=== PATIENT | female | born 1950 | race Two or more races ===

== ENCOUNTER → 2017-12-06 | Outpatient (CLI) | payer MEDICARE ==
[~2017-12-06] VITALS: Ht 165.1 cm; Wt 101.0 kg
[~2017-12-06] MED LIST: ASPI-556 PO; CALC-877 PO; DORZ10DR18 OU; GABA-529 PO; GLIP5 PO; LEVO25TA9 PO; LORA10TA7 PO; MECL-111 PO; OMEP20 PO; POTA99TA15 PO; PRAV40TA4 PO; SITA100 PO; TIMO5DRO43 OU; VITAMIN D PO
[2017-12-06 12:10] VITALS: BP 130/65
== END | disposition home or self-care (01) ==
LOC: SRCNTR 11:54
PROVIDERS: ATTEND Internal Medicine Cardiovascular Disease
DX: I11.9 Hypertensive heart disease without heart failure (principal); E03.9 Hypothyroidism, unspecified; E78.5 Hyperlipidemia, unspecified; H40.9 Unspecified glaucoma; M81.0 Age-related osteoporosis without current pathological fracture; E11.9 Type 2 diabetes mellitus without complications; Z92.3 Personal history of irradiation
CPT/HCPCS: G0463

== ENCOUNTER 2023-04-03 18:02 | Emergency (ER) | payer MEDICARE ==
[~2023-04-03] VITALS: Ht 162.6 cm; Wt 100.0 kg
[~2023-04-03 18:02] MED LIST changes: +GABA-1216 PO; -GABA-529 PO; -GLIP5 PO; +GLIP5TAB16 PO; -MECL-111 PO; +MECL-302 PO
[2023-04-03] MEDS ORDERED: 0.9% SODIUM CHLORIDE 10 ML SYRINGE IVP PRN (19:30)
[2023-04-03] MEDS: SODIUM CHLORIDE 0.9% 3,000 ML IV ONE (20:34)
[2023-04-03 20:54] LABS: ANION GAP 12 mmol/L (8-16); BASOPHILS % (AUTO) 0.2 % (0.0-2.0); CALCIUM, TOTAL 9.1 mg/dL (8.8-10.5); CARBON DIOXIDE 23 mmol/L (22-29); CHLORIDE 105 mmol/L (98-107); CREATININE 2.48 mg/dL (0.60-1.30); EOSINOPHILS % (AUTO) 1.3 % (1.0-6.0); GLOMERULAR FILTR. RATE CALC 19 mL/min (>60); GLUCOSE,RANDOM 264 mg/dL (70-110); HEMATOCRIT 31.2 % (36-46); LYMPHOCYTES # (AUTO) 1.7 K/uL (1.0-4.8); LYMPHOCYTES % (AUTO) 19.2 % (22.0-44.0); MEAN CORPUSCULAR HEMOGLOBIN 29.1 pg (26.0-34.0); MEAN CORPUSCULAR HGB CONC 32.2 G/dL (31.0-37.0); MEAN CORPUSCULAR VOLUME 90 fL (80-100); MONOCYTES # (AUTO) 0.9 K/uL (0.1-1.0); MONOCYTES % (AUTO) 10.2 % (2.0-9.0); NEUTROPHILS # (AUTO) 6.2 K/uL (1.8-7.7); NEUTROPHILS % (AUTO) 69.1 % (40.0-70.0); PLATELET COUNT (AUTO) 212 K/uL (150-450); POTASSIUM 4.1 mmol/L (3.5-5.1); RED BLOOD CELL COUNT(AUTO) 3.45 MIL/uL (4.00-5.20); RED CELL DISTRIBUTION WIDTH 16.7 % (11.5-14.5); SODIUM SERUM 140 mmol/L (136-145); UREA NITROGEN, BLOOD 69 mg/dL (7-18)
[2023-04-03 20:57] LABS: D-DIMER 0.59 mg/L FEU (0.00-0.50); PROTHROMBIN TIME 10.5 SEC (9.4-11.6)
[2023-04-03 20:59] LABS: B-TYPE NATRIURETIC PEPTIDE 82 pg/mL (0-100)
[2023-04-03 21:00] LABS: ALANINE AMINOTRANSFERASE 17 U/L (12-78); ALBUMIN 3.2 g/dL (3.4-5.0); ALKALINE PHOSPHATASE 80 U/L (46-116); ASPARTATE AMINOTRANSFERASE 13 U/L (15-37); BILIRUBIN,TOTAL 0.3 mg/dL (0.1-1.0); TOTAL PROTEIN, SERUM 7.2 g/dL (6.4-8.2)
[2023-04-03 21:01] LABS: TROPONIN I-HIGH SENSITIVITY 31 ng/L (<51)
[2023-04-03 21:02] LABS: LACTIC ACID 0.8 mmol/L (0.4-2.0)
[2023-04-03] MEDS: METOCLOPRAMIDE HCL 5 MG/ML 2 ML VIAL IVP ONE (21:50)
[2023-04-03] MEDS: ACETAMINOPHEN 500 MG TABLET PO ONE (21:50)
[2023-04-03 23:21] LABS: COVID AG,FIA SOURCE NASAL SWAB
[2023-04-03 23:51] LABS: APPEARANCE,URINE CLEAR (CLEAR); BILIRUBIN,URINE NEGATIVE (NEGATIVE); COLOR,URINE COLORLESS (YELLOW); GLUCOSE, URINE (UA) 70-100 mg/dL (NEGATIVE); KETONES,URINE NEGATIVE (NEGATIVE); LEUKOCYTE ESTERASE ,URINE NEGATIVE (NEGATIVE); NITRATE,URINE NEGATIVE (NEGATIVE); OCCULT BLOOD,URINE NEGATIVE (NEGATIVE); PROTEIN,URINE 30-70 mg/dL (NEGATIVE); SPECIFIC GRAVITIY, URINE 1.013 (1.003-1.030); UROBILINOGEN,URINE <=1.0 mg/dL (<=1.0)
[2023-04-03 23:53] LABS: INFLUENZA TYPE A NEGATIVE FOR TYPE A (NEGATIVE); INFLUENZA TYPE B NEGATIVE FOR TYPE B (NEGATIVE); SARS-COV2 (COVID) ANTIGEN,FIA Negative (Negative)
[2023-04-04 00:09] LABS: BACTERIA,URINE None Seen /HPF (None Seen); RBC,URINE None Seen /HPF (0-2); SQUAMOUS EPITHELIAL CELL,UR None Seen /LPF (None Seen); WBC,URINE None Seen /HPF (0-5)
[2023-04-04 00:22] VITALS: TEMP 98.2
[2023-04-04] MEDS: PIPERACILLIN/TAZO 3.375 GM/D5W 50 ML IV ONE (00:40)
[2023-04-04 02:27] VITALS: BP 138/56; PULSE 71; RESP 18
== END 2023-04-04 03:39 | disposition short-term general hospital (02) ==
LOC: EMS 18:17
DX: L03.116 Cellulitis of left lower limb (principal); R53.1 Weakness; E11.9 Type 2 diabetes mellitus without complications; I10 Essential (primary) hypertension; Z90.49 Acquired absence of other specified parts of digestive tract; Z88.5 Allergy status to narcotic agent; Z88.6 Allergy status to analgesic agent; Z88.2 Allergy status to sulfonamides; Z20.822 Contact with and (suspected) exposure to COVID-19
CPT/HCPCS: 99285; 93971; 71045; 96361; 96375; 87426; 80053; 81001; 83605; 83880; 84484; 85025; 85379; 85610; 87040; 87804; 93005; 84145; 96365; 36415; J2765; J7030; J2543; 81003

== ENCOUNTER 2023-04-22 12:33 | Inpatient (IN) | payer MEDICARE ==
[~2023-04-22] VITALS: Ht 162.6 cm; Wt 90.9 kg
[2023-04-22] MEDS ORDERED: INSU3INS3 SQ (12:53)
[2023-04-22] MEDS ORDERED: AMLO10TA55 PO (12:53)
[2023-04-22] MEDS ORDERED: VALS320T17 PO (12:53)
[2023-04-22] MEDS ORDERED: CHOL10002 PO (12:53)
[2023-04-22 13:21] LABS: BASOPHILS % (AUTO) 0.3 % (0.0-2.0); EOSINOPHILS % (AUTO) 3.5 % (1.0-6.0); HEMOGLOBIN 9.2 g/dL (12.0-16.0); LYMPHOCYTES # (AUTO) 0.9 K/uL (1.0-4.8); LYMPHOCYTES % (AUTO) 16.4 % (22.0-44.0); MEAN CORPUSCULAR HEMOGLOBIN 30.1 pg (26.0-34.0); MEAN CORPUSCULAR VOLUME 91 fL (80-100); MONOCYTES # (AUTO) 0.5 K/uL (0.1-1.0); NEUTROPHILS # (AUTO) 4.1 K/uL (1.8-7.7); NEUTROPHILS % (AUTO) 71.8 % (40.0-70.0); PLATELET COUNT (AUTO) 192 K/uL (150-450); RED BLOOD CELL COUNT(AUTO) 3.07 MIL/uL (4.00-5.20); RED CELL DISTRIBUTION WIDTH 16.7 % (11.5-14.5); WHITE BLOOD COUNT (AUTO) 5.7 K/uL (4.5-11.0)
[2023-04-22] MEDS ORDERED: FLUT16SP NASAL (13:29)
[2023-04-22] MEDS ORDERED: EMPA10TA3 PO (13:29)
[2023-04-22] MEDS ORDERED: POTA10CA85 PO (13:29)
[2023-04-22] MEDS ORDERED: APIX5TAB PO (13:29)
[2023-04-22] MEDS ORDERED: ASPI-1444 PO (13:29)
[2023-04-22 13:35] LABS: CALCIUM, TOTAL 8.7 mg/dL (8.8-10.5); CREATININE 1.87 mg/dL (0.60-1.30); POTASSIUM 4.4 mmol/L (3.5-5.1)
[2023-04-22] MEDS: SODIUM CHLORIDE 0.9% 1,000 ML IV ONE ×2 (13:37→18:33)
[2023-04-22 13:40] LABS: BILIRUBIN,TOTAL 0.2 mg/dL (0.1-1.0); TOTAL PROTEIN, SERUM 7.2 g/dL (6.4-8.2)
[2023-04-22 13:42] LABS: TROPONIN I-HIGH SENSITIVITY 15 ng/L (<51)
[2023-04-22 14:08] LABS: APPEARANCE,URINE CLEAR (CLEAR); BILIRUBIN,URINE NEGATIVE (NEGATIVE); COLOR,URINE LIGHT YELLOW (YELLOW); GLUCOSE, URINE (UA) NEGATIVE (NEGATIVE); KETONES,URINE NEGATIVE (NEGATIVE); LEUKOCYTE ESTERASE ,URINE TRACE (NEGATIVE); NITRATE,URINE NEGATIVE (NEGATIVE); OCCULT BLOOD,URINE TRACE (NEGATIVE); PH,URINE 5.5 (5.0-8.0); PROTEIN,URINE 100-200,SEE CONFIRM mg/dL (NEGATIVE); SPECIFIC GRAVITIY, URINE 1.015 (1.003-1.030); UROBILINOGEN,URINE <=1.0 mg/dL (<=1.0)
[2023-04-22 14:21] LABS: SULFOSALICYLIC ACID,URINE 1+ (Negative)
[2023-04-22 14:23] LABS: BACTERIA,URINE None Seen /HPF (None Seen); RBC,URINE None Seen /HPF (0-2); SQUAMOUS EPITHELIAL CELL,UR Few /LPF (None Seen); WBC,URINE 0-2 /HPF (0-5)
[2023-04-22 17:00] VITALS: BP 173/74; PULSE 66; RESP 16; TEMP 97.9
[2023-04-22] MEDS ORDERED: MAGNESIUM HYDROXIDE SUSPENSION 30 ML UDCUP PO PRN (17:45)
[2023-04-22] MEDS ORDERED: ACETAMINOPHEN 325 MG TABLET PO PRN (17:45)
[2023-04-22] MEDS ORDERED: ZOLPIDEM TARTRATE 5 MG TABLET PO PRN (17:45)
[2023-04-22] MEDS ORDERED: BISACODYL 10 MG RECTAL RECTAL SUPPOSITORY PR PRN (17:45)
[2023-04-22] MEDS: LABETALOL HCL 5 MG/ML 20 ML VIAL IVP PRN (18:32)
[2023-04-22 19:41] VITALS: BP 154/77; PULSE 78; RESP 18; TEMP 97.8
[2023-04-22] MEDS: DOCUSATE SODIUM 100 MG CAPSULE PO SCH (21:00)
[2023-04-22] MEDS: APIXABAN 5 MG TABLET PO SCH (21:05)
[2023-04-23] MEDS: ONDANSETRON HCL 4 MG/2 ML VIAL IVP PRN (02:07)
[2023-04-23 04:05] VITALS: BP 146/56; PULSE 61; RESP 18; TEMP 98.4
[2023-04-23] MEDS: LEVOTHYROXINE SODIUM 25 MCG TABLET PO SCH (05:04)
[2023-04-23 07:37] LABS: BASOPHILS % (AUTO) 0.5 % (0.0-2.0); EOSINOPHILS % (AUTO) 5.8 % (1.0-6.0); HEMATOCRIT 25.7 % (36-46); HEMOGLOBIN 8.4 g/dL (12.0-16.0); LYMPHOCYTES # (AUTO) 1.3 K/uL (1.0-4.8); LYMPHOCYTES % (AUTO) 27.8 % (22.0-44.0); MEAN CORPUSCULAR HEMOGLOBIN 29.8 pg (26.0-34.0); MEAN CORPUSCULAR HGB CONC 32.6 G/dL (31.0-37.0); MEAN CORPUSCULAR VOLUME 91 fL (80-100); MONOCYTES # (AUTO) 0.4 K/uL (0.1-1.0); MONOCYTES % (AUTO) 9.6 % (2.0-9.0); NEUTROPHILS # (AUTO) 2.6 K/uL (1.8-7.7); NEUTROPHILS % (AUTO) 56.3 % (40.0-70.0); PLATELET COUNT (AUTO) 179 K/uL (150-450); RED BLOOD CELL COUNT(AUTO) 2.81 MIL/uL (4.00-5.20); RED CELL DISTRIBUTION WIDTH 17.2 % (11.5-14.5); WHITE BLOOD COUNT (AUTO) 4.5 K/uL (4.5-11.0)
[2023-04-23 07:49] LABS: CALCIUM, TOTAL 8.5 mg/dL (8.8-10.5); CREATININE 1.45 mg/dL (0.60-1.30); POTASSIUM 3.8 mmol/L (3.5-5.1)
[2023-04-23 08:11] VITALS: BP 151/69; PULSE 75; RESP 18; TEMP 98.2
[2023-04-23] MEDS: AmLODIPine BESYLATE 10 MG TABLET PO SCH (08:40)
[2023-04-23] MEDS: ASPIRIN 81 MG DR TABLET PO SCH (08:40)
[2023-04-23] MEDS: PANTOPRAZOLE SODIUM 40 MG DR TABLET PO SCH (08:40)
[2023-04-23 17:24] VITALS: BP 156/74; PULSE 66; RESP 16; TEMP 97.9
[2023-04-23 17:32] LABS: APPEARANCE,URINE CLEAR (CLEAR); BILIRUBIN,URINE NEGATIVE (NEGATIVE); COLOR,URINE COLORLESS (YELLOW); GLUCOSE, URINE (UA) 150-200 mg/dL (NEGATIVE); KETONES,URINE NEGATIVE (NEGATIVE); LEUKOCYTE ESTERASE ,URINE NEGATIVE (NEGATIVE); NITRATE,URINE NEGATIVE (NEGATIVE); OCCULT BLOOD,URINE TRACE (NEGATIVE); PH,URINE 5.5 (5.0-8.0); PROTEIN,URINE 100-200,SEE CONFIRM mg/dL (NEGATIVE); SPECIFIC GRAVITIY, URINE 1.011 (1.003-1.030); UROBILINOGEN,URINE <=1.0 mg/dL (<=1.0)
[2023-04-23 17:50] LABS: SQUAMOUS EPITHELIAL CELL,UR Few /LPF (None Seen); SULFOSALICYLIC ACID,URINE 3+ (Negative)
[2023-04-23 17:51] LABS: BACTERIA,URINE None Seen /HPF (None Seen); RBC,URINE None Seen /HPF (0-2); WBC,URINE 0-2 /HPF (0-5)
[2023-04-23] MEDS ORDERED: DORZ10DR9 OU (18:50)
[2023-04-23] MEDS ORDERED: TIMO5DRO18 OU (18:50)
[2023-04-23] MEDS ORDERED: DEXTROSE 50%-WATER 25 GM/50 ML SYRINGE IVP PRN (19:00)
[2023-04-23 19:18] VITALS: BP 156/76; PULSE 66; RESP 18; TEMP 98.2
[2023-04-23] MEDS: DORZOLAMIDE HCL 2% 10 ML OPHTHALMIC SOLUTION OU SCH (21:00)
[2023-04-23] MEDS: TIMOLOL MALEATE 0.5% 5 ML OPHTHALMIC SOLUTION OU SCH (21:02)
[2023-04-23] MEDS: INSULIN LISPRO 100 UNITS/ML SQ PRN (21:10)
[2023-04-24 03:55] VITALS: BP 148/85; PULSE 79; RESP 20; TEMP 98.8
[2023-04-24 06:36] LABS: GLUCOMETER DEV NAME(LOC) 6N.2B; GLUCOSE,POINT OF CARE 121 MG/DL (70-110)
[2023-04-24 06:36] LABS: GLUCOMETER DEV NAME(LOC) 6S.2; GLUCOSE,POINT OF CARE 230 MG/DL (70-110)
[2023-04-24 07:37] LABS: BASOPHILS % (AUTO) 0.5 % (0.0-2.0); EOSINOPHILS % (AUTO) 5.2 % (1.0-6.0); HEMATOCRIT 27.3 % (36-46); HEMOGLOBIN 8.9 g/dL (12.0-16.0); LYMPHOCYTES # (AUTO) 1.2 K/uL (1.0-4.8); LYMPHOCYTES % (AUTO) 23.2 % (22.0-44.0); MEAN CORPUSCULAR HEMOGLOBIN 29.7 pg (26.0-34.0); MEAN CORPUSCULAR HGB CONC 32.8 G/dL (31.0-37.0); MEAN CORPUSCULAR VOLUME 91 fL (80-100); MONOCYTES # (AUTO) 0.4 K/uL (0.1-1.0); MONOCYTES % (AUTO) 8.3 % (2.0-9.0); NEUTROPHILS # (AUTO) 3.1 K/uL (1.8-7.7); NEUTROPHILS % (AUTO) 62.8 % (40.0-70.0); PLATELET COUNT (AUTO) 182 K/uL (150-450); RED BLOOD CELL COUNT(AUTO) 3.01 MIL/uL (4.00-5.20); RED CELL DISTRIBUTION WIDTH 16.7 % (11.5-14.5)
[2023-04-24 07:47] LABS: CALCIUM, TOTAL 8.8 mg/dL (8.8-10.5); CREATININE 1.46 mg/dL (0.60-1.30); POTASSIUM 4.1 mmol/L (3.5-5.1)
[2023-04-24 08:08] VITALS: BP 181/78; PULSE 58; RESP 18; TEMP 98.2
[2023-04-24 09:09] VITALS: PULSE 58
[2023-04-24] MEDS ORDERED: HYDR50TA37 PO (10:59)
[2023-04-24] MEDS ORDERED: VALS40TA4 PO (10:59)
[2023-04-24 12:00] VITALS: BP 164/82
[2023-04-24] MEDS: HydrALAZINE HCL 50 MG TABLET PO SCH (12:17)
[2023-04-24 12:41] LABS: GLUCOMETER DEV NAME(LOC) 6S.2; GLUCOSE,POINT OF CARE 289 MG/DL (70-110)
[2023-04-24 14:30] VITALS: BP 148/78
[2023-04-25] MEDS ORDERED: VALSARTAN 40 MG TABLET PO SCH (09:00)
== END 2023-04-24 14:51 | disposition home or self-care (01) | DRG 438 ==
LOC: EMS 12:34 → AHU 14:31 → 6N 15:23 → 6S 16:11
PROVIDERS: ADMIT Internal Medicine; ATTEND Internal Medicine
DX: K85.90 Acute pancreatitis without necrosis or infection, unspecified (principal); N17.0 Acute kidney failure with tubular necrosis; E11.9 Type 2 diabetes mellitus without complications; E03.9 Hypothyroidism, unspecified; E66.01 Morbid (severe) obesity due to excess calories; E78.5 Hyperlipidemia, unspecified; I10 Essential (primary) hypertension; J30.9 Allergic rhinitis, unspecified; K21.9 Gastro-esophageal reflux disease without esophagitis; M10.9 Gout, unspecified; Z79.01 Long term (current) use of anticoagulants; Z79.4 Long term (current) use of insulin; Z79.84 Long term (current) use of oral hypoglycemic drugs; Z79.899 Other long term (current) drug therapy; Z68.34 Body mass index [BMI] 34.0-34.9, adult; Z88.5 Allergy status to narcotic agent; Z88.2 Allergy status to sulfonamides; Z88.8 Allergy status to other drugs, medicaments and biological substances; Z90.49 Acquired absence of other specified parts of digestive tract
CPT/HCPCS: 71045; 76700; 80048; 80053; 81001; 81002; 82962; 83690; 84484; 85025; 93005; 99285; J2405; J3490; J7030; 36415-L1; 36415-TC